=== PATIENT | female | born 1935 ===

== ENCOUNTER 2017-08-26 17:23 | Emergency (ER) | payer OTHER ==
[~2017-08-26] VITALS: Ht 162.6 cm; Wt 72.6 kg
[~2017-08-26 17:23] MED LIST: CEFADROXIL500 MG PO
== END 2017-08-26 21:07 | disposition home or self-care (01) ==
LOC: ER 17:23
DX: S00.33XA Contusion of nose, initial encounter (principal); W18.09XA Striking against other object with subsequent fall, initial encounter; Y93.89 Activity, other specified; Y92.89 Other specified places as the place of occurrence of the external cause; Y99.8 Other external cause status

== ENCOUNTER 2017-10-14 20:51 | Emergency (ER) | payer OTHER ==
[~2017-10-14] VITALS: Ht 162.6 cm; Wt 72.6 kg
[2017-10-15] MEDS ORDERED: NITROFURANTOIN100 MG PO (08:13)
== END 2017-10-15 12:12 | disposition home or self-care (01) ==
LOC: ER 20:51 → EDBD 20:53 → ER 20:53
DX: M72.2 Plantar fascial fibromatosis (principal); B95.2 Enterococcus as the cause of diseases classified elsewhere; B37.49 Other urogenital candidiasis